=== PATIENT | male | born 1970 | race Caucasian/White ===

== ENCOUNTER → 2022-03-08 07:53 | Outpatient (CLI) | payer OTHER, SELFPAY ==
--- NOTE | ~2022-03-08 | MR_ITS ---
MRI of the internal auditory canals Clinical history: Vertigo, unsteady gait TECHNIQUE: Coronal thin cut T1-weighted and T2-weighted images, and thin cut axial T1-weighted images were performed through the internal auditory canal regions. Following intravenous administration of 19 cc MultiHance gadolinium, thin cut T1-weighted fat-sat imaging was performed in the axial planes t hrough the internal auditory canals. FINDINGS: No abnormal mass lesion seen at the internal auditory canals or cerebellopontine angle reena ons. No abnormal postcontrast enhancement seen in these regions. Fourth ventricle is somewhat promine nt, nonspecific. IMPRESSION: No significant abnormality seen at the internal auditory canals or cerebellopontine angle regions. Somewhat prominent fourth ventricle, nonspecific. Reviewed, dictated and finalized at location . [employer] OPERATOR IMPRESSION: No significant abnormality seen at the internal auditory canals or cerebellopon albaro angle regions. Somewhat prominent fourth ventricle, nonspecific.
--- NOTE | ~2022-03-08 | MR_ITS ---
MRI of the brain Clinical History: Vertigo, unsteady gait, lightheadedness Technique: Axial and sagittal T1-weighted images were acquired. These were followed by axial T2-weigh harish, diffusion weighted, gradient, and FLAIR images. Following intravenous administration of 19 cc Mu ltiHance gadolinium, T1-weighted fat-sat imaging was performed in the axial and coronal planes. Findings: There is focal FLAIR hyperintense signal in the periventricular white matter near the atriu m of the right lateral ventricle (axial FLAIR image 14). No other signal abnormality identified. No a cute infarct, intracranial hemorrhage, or mass lesion identified. Ventricles and subarachnoid spaces are unremarkable. Orbits are unremarkable. Paranasal sinuses and m astoid air cells are clear. Major intracranial flow voids appear intact. Sagittal midline structures are intact. No abnormal postcontrast enhancement identified. IMPRESSION: Single small focal area of FLAIR hyperintense signal in the right periventricular white matter, as de tailed above. This likely represents focal chronic microvascular ischemic change. Correlate for any p ossibility of demyelinating plaque. Reviewed, dictated and finalized at location M. [facility]YMAN PIPEFITTER IMPRESSION: Single small focal area of FLAIR hyperintense signal in the right periventricul ar white matter, as detailed above. This likely represents focal chronic microv ascular ischemic change. Correlate for any possibility of demyelinating plaque.
== END ==
PROVIDERS: PCP Physician Assistant Medical; Visit Provider Physician Assistant Medical
DX: R42 Dizziness and giddiness (principal); R26.9 Unspecified abnormalities of gait and mobility
CPT/HCPCS: 70553; A9577

== ENCOUNTER 2022-10-26 06:49 | Emergency (ER) | payer OTHER, SELFPAY ==
[2022-10-26] VITALS (13 sets, daily range): BP systolic 130–162; BP diastolic 79–96; PULSE 58–73; RESP 12–18; TEMP 36.4; O2SAT 95–99
[2022-10-26 07:27] LABS: Appearance Urine Clear (Clear); Bilirubin Urine Negative (Negative); Blood Urine Negative (Negative); Color Urine Yellow (Yellow); Glucose Urine UA Negative (Negative); Ketones Urine Negative (Negative); Leukocyte Esterase Ur Negative LEU/UL (Negative); Nitrate Urine Negative (Negative); Protein Urine Negative (Negative); Specific Grav Ur 1.014 (1.001-1.035); Urobilinogen Urine 0.2 mg/dL (<2.0); pH Urine 6.5 (5.0-9.0)
[2022-10-26 07:34] LABS: Add Urine Microscopic? NO
[2022-10-26 08:11] LABS: Basophils Percent Auto 0.4 % (0.2-1.2); Eosinophils Absolute Auto 0.1 K/mm3 (0-0.3); Eosinophils Percent Auto 1.8 % (0-4.4); Hematocrit 47.5 % (42.0-52.0); Hemoglobin 15.5 g/dL (14.0-18.0); Immature Granulocyte Absolute 0.02 K/mm3 (0.00-0.031); Immature Granulocyte Percent A 0.3 % (0-0.5); Lymphocytes Absolute Auto 1.01 K/mm3 (0.9-3.2); Mean Corpuscular HGB Conc 32.6 g/dl (32-36); Mean Corpuscular Hemoglobin 29.6 pg (26-34); Mean Corpuscular Volume 90.6 fl (80-100); Mean Platelet Volume 10.7 fl (7.4-10.4); Monocytes Absolute Auto 0.7 K/mm3 (0.1-0.6); Monocytes Percent Auto 9.4 % (2.6-8.5); Neutrophils Absolute Auto 5.3 K/mm3 (1.3-6.7); Neutrophils Percent Auto 74.1 % (45.5-73.1); Platelet Count Result 257 k/mm3 (150-375); Red Blood Count 5.24 M/mm3 (4.6-6.20); Red Cell Distribution Width 12.6 % (11.5-14.5); White Blood Count 7.2 K/mm3 (4.5-10.0)
[2022-10-26 08:21] LABS: Alanine Aminotransferase 25 U/L (6-50); Albumin Level 4.2 g/dL (3.5-5.1); Alkaline Phosphatase 62 U/L (38-126); Anion Gap 8 mmol/L (8-16); Aspartate Amino Transferase 29 U/L (17-59); Bilirubin,Total 0.6 mg/dL (0.2-1.3); Blood Urea Nitrogen 14 mg/dL (9-20); Calcium 8.8 mg/dL (8.4-10.2); Carbon Dioxide 31 mmol/L (22-30); Chloride 102 mmol/L (98-107); Estimated CRCL calculation 97 ml/min; Estimated Glomerular Filt Rate > 60; Glucose 112 mg/dL (65-110); Potassium 4.2 mmol/L (3.4-5.0); Sodium 141 mmol/L (137-145)
--- NOTE | 2022-10-26 09:31 | ED.MALEGU ---
HPI - Male Genitourinary General Chief complaint: Urogenital-Male Stated complaint: lightheaded, dizzy, not emptying bladder Time Seen by Provider: 10/26/22 09:19 Source: patient, family and old records reviewed Mode of arrival: ambulatory Limitations: no limitations History of Present Illness HPI Narrative: Krzysztof is a 52-year-old male patient presenting to the ER today with complaints of feeling lightheaded and not being able to empty his bladder completely. He reports he is having some bladder pressure with urinary frequency and low urine output. He was recently seen by a urologist and they told him he could remove the catheter prior to his past visit where he had urinary retention and he received a catheter. Also reports that he has had this lightheaded dizziness going on for several months. Had a MRI of the brain back in February and this was relatively normal. States he has also had EEG and EKG completed the past which were normal. He denies any fever, chills, back pain, or abdominal pain. Does have some pressure over his bladder. Related Data Allergies Allergy/AdvReac Type Severity Reaction Status Date / Time No Known Allergies Allergy Verified 10/26/22 07:55 Review of Systems Review of Systems: Pertinent positives per HPI. Patient denies any fever, chills, rash, headache, visual changes, cough, runny nose, sore throat, shortness of breath, chest pain, palpitations, nausea, vomiting, diarrhea, constipation, abdominal pain. [facility] Past Medical History Medical History Hypertension Hypothyroid Social History Social History Smoking status: Never smoker Alcohol intake: current Alcohol use details: rare Substance use: never Substance use type: does not use Lack of Transportation: No Lack of Food: Never True Current Housing: I Have Housing Concerned About Future Housing: No Difficulty Paying Gas/Electric Bills: No Difficulty Paying for Meds: No Currently Unemployed: No Education: High School Diploma/GED Difficulty w/ Childcare or Family Care: No Living arrangements: with family Occupation/Education: occupation Gender identity (if verbalized by the patient): Male Sexual Orientation (if Verbalized by the Patient): Straight or Heterosexual Comments At the time of my signature, I reviewed and agree with the nursing past medical, surgical, social, and family history. There is no relevant family history pertinent to the patient complaint. Exam Narrative: General: Well-developed, well nourished, in no apparent distress Head: Normocephalic, atraumatic Eyes: Pupils equally round and reactive to light bilaterally, EOM intact, sclera and conjunctive clear, no discharge, lids normal Ears: TMs intact and clear, ear canals clear, no drainage, grossly hearing normal. Nose: Nares patent, no discharge, no inflammation, no sinus tenderness. Mouth: Oropharynx without lesions or masses, good dentition, MMM. Tongue midline, even rise and fall of uvula, slight slurred speech- normal for patient Neck: Supple, trachea midline, no enlargement of anterior or posterior cervical nodes, no thyroid masses or goiter palpable. Cardio: Regular rate and rhythm, s1 and s2 normal, no murmur appreciated. Resp: Clear to auscultation bilaterally anteriorly and posteriorly, no rhonchi, rales, wheezing or rubs Musculoskeletal: No deformity, non-tender to palpation, grossly normal range of motion, muscle strength strong and equal, peripheral pulse strong, no edema, no cyanosis, normal gait and station Neuro: Alert and oriented x4 with normal speech, no focal deficits, cranial nerves I through XII intact, muscle strength 5 out of 5, sensation intact bilaterally. Abdomen: Soft, pliable, bowel sounds present in all quadrants, mild tender to palpation over the suprapubic area, no organomegly, no C
== END 2022-10-26 10:02 | disposition home or self-care (01) ==
PROVIDERS: Emergency Medicine; Emergency Provider Nurse Practitioner Family; PCP Physician Assistant Medical
DX: R42 Dizziness and giddiness (principal); R33.9 Retention of urine, unspecified; I10 Essential (primary) hypertension; E03.9 Hypothyroidism, unspecified
CPT/HCPCS: 36415; 80053; 81003; 85025; 99283